=== PATIENT | male | born 1945 | race Two or more races ===

== ENCOUNTER → 2024-10-19 10:39 | Outpatient (REF) | payer OTHER, SELFPAY | LOC: RAD 10:39 | PROVIDERS: ATTENDING PHYSICIAN Family Medicine | DX: R05.1 Acute cough (principal); R07.81 Pleurodynia | CPT/HCPCS: 71046 ==

== ENCOUNTER → 2024-10-27 11:22 | Outpatient (REF) | payer OTHER, SELFPAY ==
[2024-10-27 12:21] LABS: % Basophils 0.4 % (0-2); % Eosinophils 1.6 % (0-6); % Immature Granulocytes 0.4 % (0-0.5); % Lymphocytes 29.7 % (20.5-51.1); % Monocytes 12.4 % (1.7-9.3); % Neutrophils 55.5 % (42.2-75.2); Absolute Eosinophils 0.1 10^3/uL (0-0.7); Absolute Lymphocytes 2.4 10^3/uL (1.2-3.4); Absolute Neutrophils 4.5 10^3/uL (1.4-6.5); Hematocrit 36.2 % (39.0-52.0); Hemoglobin 12.2 g/dL (13.0-18.0); Mean Corp Hgb Conc. 33.7 g/dL (33.0-37.0); Mean Corpuscular Hgb 30.6 pg (27.0-31.0); Mean Corpuscular Volume 90.7 fL (80.0-94.0); Mean Platelet Volume 9.1 fL (7.4-10.4); Nucleated Red Blood Cells % 0 % (-); Platelet Count 407 10^3/uL (130-400); Red Blood Cell Count 3.99 10^6/uL (4.70-6.10); Red Cell Dist. Width 12.9 % (11.5-14.5); White Blood Cell Count 8.1 10^3/uL (4.8-10.8)
[2024-10-27 12:35] LABS: INR 0.98; PT 13.3 Sec (11.4-14.6)
[2024-10-27 12:36] LABS: APTT 35.1 Sec (23.4-35.0)
[2024-10-27 13:28] LABS: ALT (SGPT) 12 U/L (0-50); AST (SGOT) 29 U/L (17-59); Albumin 4.5 g/dl (3.5-5.0); Alkaline Phosphatase 49 U/L (38-126); Blood Urea Nitrogen 17 mg/dl (9-20); Calcium 9.1 mg/dl (8.4-10.2); Carbon Dioxide 27 mmol/L (22-30); Chloride 97 mmol/L (98-107); Glucose 93 mg/dl (70-99); Sodium 134 mmol/L (135-145); Total Bilirubin 1.4 mg/dl (0.2-1.3); Total Protein 7.3 g/dl (6.3-8.2); eGFR > 60.00
== END ==
LOC: RAD 11:22
PROVIDERS: ATTENDING PHYSICIAN Family Medicine
DX: S30.1XXA Contusion of abdominal wall, initial encounter (principal); R10.11 Right upper quadrant pain
CPT/HCPCS: 36415; 74177; 80053; 85025; 85610; 85730; Q9967

== ENCOUNTER → 2024-12-25 10:55 | Outpatient (REF) | payer OTHER, SELFPAY | LOC: RAD 10:55 | PROVIDERS: ATTENDING PHYSICIAN Family Medicine | DX: M25.562 Pain in left knee (principal) | CPT/HCPCS: 73564 ==

== ENCOUNTER → 2025-06-18 08:03 | Outpatient (REF) | payer OTHER, SELFPAY | LOC: RAD 08:03 | PROVIDERS: ATTENDING PHYSICIAN Family Medicine | DX: I83.893 Varicose veins of bilateral lower extremities with other complications (principal); I83.899 Varicose veins of unspecified lower extremity with other complications | CPT/HCPCS: 93970 ==